=== PATIENT | female | born 1955 | race Caucasian/White ===

== ENCOUNTER 2017-02-19 18:49 | Emergency (ER) | payer BC, OTHER ==
[~2017-02-19] VITALS: Ht 162.6 cm; Wt 76.4 kg
[~2017-02-19 18:49] MED LIST: CELE200 PO; TRAM50 PO
[2017-02-19 18:54] VITALS: BP 161/85; PULSE 120; RESP 20; TEMP 102.3; O2SAT 98
[2017-02-19] MEDS ORDERED: OMEP10SU (19:08)
--- NOTE | 2017-02-19 19:13 | PD ---
HPI Chief Complaint: Cold / Flu Symptoms Time Seen by Provider: 19:02 Travel History International Travel<30 days: No Contact w/Intl Traveler<30days: No Traveled to known affect area: No History of Present Illness HPI pt is a healthy 61 year old female that developed aches fever today at work , no sore throat no diarrhea no rhinorrhea . Pt has 101.9 at home took tylenol and comes to ER Reports cough and body aches as her main complaint. Has not seen another doctior for this complaint. pt reports generalized achy feeling no focal pain , malaise . and general weakness. allergy to PCN and Ibuprofen PFSH Past Medical History Medical History: Denies Significant Hx Diminished Hearing: No Tetanus Vaccination: > 5 Years Influenza Vaccination: No Menopausal: Yes Past Surgical History Section: Yes Other Surgery: Yes () Social History Alcohol Use: Yes (OCC) Tobacco Use: No (quit 1999) Substance Use: No Allergies-Medications (Allergen,Severity, Reaction): Coded Allergies: ibuprofen (Verified Allergy, Intermediate, Hives, 02/19/17) penicillin G (Verified Allergy, Intermediate, Hives, 02/19/17) Reported Meds & Prescriptions Reported Meds & Active Scripts Active Tamiflu (Oseltamivir Phosphate) 75 Mg Cap 75 Mg PO BID Guaiatussin AC Liq (Guaifenesin-Codeine Liq) 100-10 Mg/5 Ml Syrp 10 Ml PO Q6H PRN Reported Prilosec (Omeprazole Magnesium) 10 Mg Pow Review of Systems Except as stated in HPI: all other systems reviewed are Neg Physical Exam Narrative GENERAL: Appears uncomfortable but not toxic SKIN: Warm and dry. HEAD: Atraumatic. Normocephalic. EYES: Pupils equal and round. No scleral icterus. No injection or drainage. ENT: No nasal bleeding or discharge. Mucous membranes pink and moist. NECK: Trachea midline. No JVD. CARDIOVASCULAR: Regular rate and rhythm. RESPIRATORY: No accessory muscle use. Clear to auscultation. Breath sounds equal bilaterally. GASTROINTESTINAL: Abdomen soft, non-tender, nondistended. Hepatic and splenic margins not palpable. MUSCULOSKELETAL: Extremities without clubbing, cyanosis, or edema. No obvious deformities. NEUROLOGICAL: Awake and alert. No obvious cranial nerve deficits. Motor grossly within normal limits. Five out of 5 muscle strength in the arms and legs. Normal speech. PSYCHIATRIC: Appropriate mood and affect; insight and judgment normal. Data Data Last Documented VS Vital Signs Date Time Temp Pulse Resp B/P (MAP) Pulse Ox O2 Delivery O2 Flow Rate FiO2 02/19/17 20:00 02/19/17 19:51 98.9 105 18 98 Room Air Orders Orders Influenzae A/B Antigen (02/19/17 19:09) Group A Rapid Strep Screen (02/19/17 19:09) Guaifen-Cod 200-20 Mg/10ml Liq (Robituss (02/19/17 19:15) Urinalysis - C+S If Indicated (02/19/17 19:13) Strep Culture (Group A) (02/19/17 19:17) Ed Discharge Order (02/19/17 20:00) Labs Laboratory Tests Test 02/19/17:17 Urine Color STRAW Urine Turbidity CLEAR Urine pH 8.0 Urine Specific Rogers 1.007 Urine Protein NEG mg/dL Urine Glucose (UA) NEG mg/dL Urine Ketones NEG mg/dL Urine Occult Blood TRACE Urine Nitrite NEG Urine Bilirubin NEG Urine Leukocyte Esterase MOD Urine RBC 0-3 /hpf Urine WBC 3-5 /hpf Urine Squamous Epithelial Cells 0-5 /hpf Microscopic Urinalysis Comment CULT NOT INDICATED MDM Medical Decision Making Medical Screen Exam Complete: Yes Emergency Medical Condition: Yes Differential Diagnosis influenza vs viral illness vs strep vs UTI other Narrative Course LUNG auscultation completely clear no Indication for CXR , strep and flu swabs negative . will give tamiflu due to symptoms and antiviral effects as well as Robitussin AC Diagnosis Primary Impression: Viral upper respiratory illness Additional Impression: Systemic viral illness Patient Instructions: General Instructions, Viral Syndrome (ED) Scripts Oseltamivir (Tamiflu) 75 Mg Cap 75 MG PO BID for Mgmt Viral Infection, #10 CAP 0 Refills Prov: Cornell Mobley MD 02/19/17 Guaifenesin-Codeine Liq (Guaiatussin AC Liq) 100-10 Mg/5 Ml Syrp 10 ML PO Q6H Y for COUGH, #120 ML Prov: Cornell Mobley MD 02/19/17 Cornell Mobley MD Feb 19, 2017 19:13
[2017-02-19] MEDS ORDERED: guaiFENesin/CODEINE SYRUP 200 MG/20 MG/10 ML CUP PO ONE (19:15)
[2017-02-19 19:27] LABS: BILIRUBIN, URINE NEG (NEG); GLUCOSE,URINE NEG (NEG); KETONE, URINE NEG (NEG); NITRITE,URINE NEG (NEG); URINE LEUKOCYTE ESTERASE MOD (NEG)
[2017-02-19 19:32] LABS: BLOOD, URINE TRACE (NEG)
[2017-02-19 19:35] LABS: URINE COLOR STRAW (YELLW/STRAW)
[2017-02-19 19:36] LABS: RBC, URINE 0-3 /hpf (0-3); SQUAMOUS EPITHELIAL CELL URINE 0-5 /hpf (0-5)
[2017-02-19] MEDS ORDERED: OSEL75 PO (19:50)
[2017-02-19] MEDS ORDERED: GUAISYP5 PO (19:50)
[2017-02-19 19:51] VITALS: BP 158/88; PULSE 105; RESP 18; TEMP 98.9; O2SAT 98
== END 2017-02-19 20:01 | disposition home or self-care (01) ==
LOC: PHED 18:49
DX: J06.9 Acute upper respiratory infection, unspecified (principal)
CPT/HCPCS: 81001; 87081; 87804; 87880; 99283

== ENCOUNTER 2017-05-13 19:01 | Emergency (ER) | payer BC ==
[~2017-05-13] VITALS: Ht 162.6 cm; Wt 77.0 kg
[~2017-05-13 19:01] MED LIST changes: -CELE200 PO; +GUAISYP5 PO; +OMEP10SU; +OSEL75 PO; -TRAM50 PO
[2017-05-13 19:29] VITALS: BP 157/82; PULSE 100; RESP 16; TEMP 98.2; O2SAT 99
--- NOTE | 2017-05-13 19:41 | PD ---
HPI Chief Complaint: Headache Time Seen by Provider: 19:40 Travel History International Travel<30 days: No Contact w/Intl Traveler<30days: No Traveled to known affect area: No History of Present Illness HPI Patient states that she has had a couple of days of left-sided temporoparietal area pain, rated as 6 out of 10, seem to be improved by taking some over-the- counter Tylenol. No major aggravating factors noted. The patient denies any associated factors such as fever, rash, neck stiffness, chest pain, back pain, abdominal pain, nausea, vomiting, cough, runny nose, or diarrhea. Patient states allergy to ibuprofen and penicillin Past medical history significant only for and GERD PFSH Past Medical History Diminished Hearing: No ?: Not Menopausal: Yes Past Surgical History Section: Yes Other Surgery: Yes () Social History Alcohol Use: Yes (OCC) Tobacco Use: No (quit 1999) Substance Use: No Allergies-Medications (Allergen,Severity, Reaction): Coded Allergies: ibuprofen (Verified Allergy, Intermediate, Hives, 05/13/17) penicillin G (Verified Allergy, Intermediate, Hives, 05/13/17) Reported Meds & Prescriptions Reported Meds & Active Scripts Active Reported Tylenol (Acetaminophen) 325 Mg Tab 650 Mg PO Q6H PRN Prilosec (Omeprazole Magnesium) 10 Mg Pow Review of Systems General / Constitutional: No: Fever Eyes: No: Visual changes HENT: Positive: Headaches Cardiovascular: No: Chest Pain or Discomfort Respiratory: No: Shortness of Breath Gastrointestinal: No: Abdominal Pain Genitourinary: No: Dysuria Musculoskeletal: No: Pain Skin: No Rash Neurologic: No: Weakness Psychiatric: No: Depression Endocrine: No: Polydipsia Hematologic/Lymphatic: No: Easy Bruising Physical Exam Narrative GENERAL: SKIN: Warm and dry. HEAD: Atraumatic. Normocephalic. EYES: Pupils equal and round. No scleral icterus. No injection or drainage. ENT: No nasal bleeding or discharge. Mucous membranes pink and moist. NECK: Trachea midline. No JVD. CARDIOVASCULAR: Regular rate and rhythm. RESPIRATORY: No accessory muscle use. Clear to auscultation. Breath sounds equal bilaterally. GASTROINTESTINAL: Abdomen soft, non-tender, nondistended. MUSCULOSKELETAL: Extremities without clubbing, cyanosis, or edema. No obvious deformities. NEUROLOGICAL: Awake and alert. No obvious cranial nerve deficits. Motor grossly within normal limits. Five out of 5 muscle strength in the arms and legs. Normal speech. PSYCHIATRIC: Appropriate mood and affect; insight and judgment normal. Data Data Last Documented VS Vital Signs Date Time Temp Pulse Resp B/P (MAP) Pulse Ox O2 Delivery O2 Flow Rate FiO2 05/13/17 20:43 87 16 138/66 (90) 98 Room Air 05/13/17 19:29 98.2 Orders Orders Morphine Inj (Morphine Inj) (05/13/17 20:00) Metoclopramide Inj (Reglan Inj) (05/13/17 20:00) Iv Access Insert/Monitor (05/13/17 19:47) Ct Brain W/O Iv Contrast(Rout) (05/13/17 20:43) [facility] Medical Decision Making Medical Screen Exam Complete: Yes Emergency Medical Condition: Yes Medical Record Reviewed: Yes Differential Diagnosis Intracranial hemorrhage versus brain tumor versus sinusitis versus tension headache Narrative Course Patient CT was read by radiologist as no intracranial abnormality. The patient's head pain is nearly resolved after the patient was given some morphine and Reglan for pain control. Patient is tolerating p.o. ambulating on her own is otherwise nontoxic appearing. Vital signs are stable and the patient will be discharged home with outpatient prescription Diagnosis Primary Impression: tension headache Patient Instructions: Acute Headache (ED), General Instructions Scripts Tramadol (Ultram) 50 Mg Tab 50 MG PO Q8H Y for PAIN, #14 TAB 0 Refills Prov: Blayne Tomlinson MD 05/13/17 Baclofen (Baclofen) 10 Mg Tab 10 MG PO TID, #15 TAB 0 Refills Prov: Blayne Tomlinson MD 05/13/17 Disposition: 01 DISCHARGE HOME Condition: Stable Blayne Tomlinson MD May 13, 2017 19:41
[2017-05-13] MEDS ORDERED: TYLE325T PO (19:51)
[2017-05-13] MEDS ORDERED: METOCLOPRAMIDE HCL 10 MG/2 ML VIAL IV PUSH ONE (20:00)
[2017-05-13] MEDS ORDERED: MORPHINE SULFATE 4 MG/ML INJ IV PUSH ONE (20:00)
[2017-05-13 20:20] VITALS: BP 105/66; PULSE 92; RESP 16; O2SAT 100
[2017-05-13 20:43] VITALS: BP 138/66; PULSE 87; RESP 16; O2SAT 98
--- NOTE | 2017-05-13 21:07 | RADRPT ---
EXAM DATE/TIME: 05/13/2017 20:57 [facility] COMPARISON: No previous studies available for comparison. INDICATIONS : Left side cephalgia. RADIATION DOSE: 61.34 CTDIvol (mGy) MEDICAL HISTORY : None SURGICAL HISTORY : None. ENCOUNTER: Initial ACUITY: 3 days PAIN SCALE: 5/10 LOCATION: cranial TECHNIQUE: Multiple contiguous axial images were obtained of the head. Using automated exposure control and adj ustment of the mA and/or kV according to patient size, radiation dose was kept as low as reasonably a chievable to obtain optimal diagnostic quality images. DICOM format image data is available electro nically for review and comparison. FINDINGS: CEREBRUM: The ventricles are normal for age. No evidence of midline shift, mass lesion, hemorrhage or acute in farction. No extra-axial fluid collections are seen. POSTERIOR FOSSA: The cerebellum and brainstem are intact. The 4th ventricle is midline. The cerebellopontine angle i s unremarkable. EXTRACRANIAL: The visualized portion of the orbits is intact. SKULL: The calvaria is intact. No evidence of skull fracture. CONCLUSION: Negative noncontrast head CT. Jim Peralta MD on May 13, 2017 at 21:04 Board Certified Radiologist. This report was verified electronically.
[2017-05-13] MEDS ORDERED: BACL10TA PO (21:17)
[2017-05-13] MEDS ORDERED: TRAM50 PO (21:17)
[2017-05-13 22:22] VITALS: BP 143/78
== END 2017-05-13 22:24 | disposition home or self-care (01) ==
LOC: PHED 19:01
DX: G44.209 Tension-type headache, unspecified, not intractable (principal)
CPT/HCPCS: 70450; 96374; 96375; 99284; J2270; J2765